=== PATIENT | male | born 1965 | race Caucasian/White ===

== ENCOUNTER 2016-10-13 23:36 | Emergency (ER) | payer OTHER ==
[~2016-10-13] VITALS: Ht 177.8 cm; Wt 103.2 kg
[~2016-10-13 23:36] MED LIST: BACLOFEN10 MG PO; NAPROSYN500 MG PO; NOHOMEMEDS; PERCOCET 5/31 TABLET PO
[2016-10-14 00:23] LABS: HEMATOCRIT 44.2 % (38.0-50.0); MCH 31.4 PG (29.0-34.0); MCHC 33.9 G/DL (30.0-36.0); MCV 92.5 FL (86-99); MEAN PLAT.VOLUME 10.1 uM^3 (9.0-12.4); PLATELET COUNT 300 K/uL (156-360); RBC DIS.WIDTH-CV 12.5 % (11.8-14.6); RBC DIS.WIDTH-SD 42.7 % (39-53); RED BLOOD COUNT 4.78 M/uL (4.00-5.50); WHITE BLOOD COUNT 11.1 K/uL (4.1-10.2)
[2016-10-14 00:32] LABS: CHLORIDE 105 mEq/L (99-109); POTASSIUM 3.8 mEq/L (3.7-5.4); SODIUM 141 mEq/L (136-147)
[2016-10-14 00:34] LABS: GLUCOSE 84 mg/dL (70-99)
[2016-10-14 00:35] LABS: ANION GAP 10 MEQ/L (2-14)
[2016-10-14 00:38] LABS: GFR ESTIMATE (CALCULATED) > 59 mL/min/; UREA NITROGEN (BUN) 20 mg/dL (9-23)
[2016-10-14 00:44] LABS: TROP-I INTERPRETATION NEGATIVE; TROPONIN-I < 0.01 ng/mL (0.0-0.30)
[2016-10-14 03:44] VITALS: BP 131/77
[2016-10-14 06:49] LABS: HDL CHOLESTEROL 32 MG/DL (Desirable>=40); LDL CHOLESTEROL 90 mg/dL (Desirable<100); NON-HDL CHOLESTEROL 111 mg/dL (Desirable<160); TOTAL CHOLESTEROL 143 mg/dL (Desirable<200); TRIGLYCERIDES 105 MG/DL (Normal: <150)
[2016-10-14 07:06] LABS: TROP-I INTERPRETATION NEGATIVE; TROPONIN-I < 0.01 ng/mL (0.0-0.30)
[2016-10-14 07:38] VITALS: BP 1100/73
[2016-10-14 12:25] VITALS: BP 138/74
[2016-10-14 13:02] LABS: TROP-I INTERPRETATION NEGATIVE; TROPONIN-I < 0.01 ng/mL (0.0-0.30)
[2016-10-14] MEDS ORDERED: ASPIRIN81 M2 PO (16:00)
== END 2016-10-14 16:20 | disposition home or self-care (01) ==
LOC: EME 23:36 → EDOF 10-14 02:23 → 5WEST 10-14 03:33
PROVIDERS: Physician Assistant Medical
DX: R07.9 Chest pain, unspecified (principal); E66.9 Obesity, unspecified; M25.512 Pain in left shoulder; R61 Generalized hyperhidrosis; R00.1 Bradycardia, unspecified; R94.31 Abnormal electrocardiogram [ECG] [EKG]; Z87.891 Personal history of nicotine dependence; Z98.1 Arthrodesis status; R51 Headache; M54.2 Cervicalgia; M54.5 Low back pain; Z68.32 Body mass index [BMI] 32.0-32.9, adult
CPT/HCPCS: 71020; 80048; 80061; 84484; 85027; 93005; 99281; 99284; G0378

== ENCOUNTER 2017-07-29 11:06 | Emergency (ER) | payer OTHER ==
[~2017-07-29] VITALS: Ht 177.8 cm; Wt 105.0 kg
[~2017-07-29 11:06] MED LIST changes: +ASPIRIN81 M2 PO
[2017-07-29 15:15] VITALS: BP 163/85
== END 2017-07-29 15:22 | disposition home or self-care (01) ==
LOC: EME 11:06
DX: R25.2 Cramp and spasm (principal); M79.661 Pain in right lower leg; Z87.891 Personal history of nicotine dependence; Z88.0 Allergy status to penicillin
CPT/HCPCS: 93971; 99281; 99283